=== PATIENT | male | born 1985 | race Two or more races ===

== ENCOUNTER 2022-08-08 19:44 | Emergency (ER) | payer BC ==
[2022-08-08] MEDS ORDERED: Sodium Chloride 0.9% 10 ML Syringe FLUSH PRN (20:05)
== END 2022-08-08 21:33 | disposition home or self-care (01) ==
LOC: JD.ED 19:44
DX: R07.89 Other chest pain (principal)
CPT/HCPCS: 36415; 71045; 84484; 93005; 99285; J3490